=== PATIENT | male | born 1970 | race Hispanic/Latino ===

== ENCOUNTER 2018-03-02 10:33 | Emergency (ER) | payer SELFPAY ==
[2018-03-02 10:33] VITALS: BP 121/84; PULSE 75; RESP 19; TEMP 36.1; O2SAT 99; BMI 29.7
--- NOTE | 2018-03-02 10:52 | ED.VISSUMM ---
- ER Visit Summary Date of Service: 03/02/18 Chief Complaint: Low back pain History of Present Illness: The patient is a 47 M no significant past medical history. No prior surgeries. Patient states yesterday he was seated want to bend over to pick something up and had onset of low back pain. Denies any numbness or weakness. No fever. No trauma or fall. He denies any prior back surgery. He has had similar prior back pain 3-4 years ago. He denies any radiation to his legs. He denies any bowel or bladder incontinence. He is on no blood thinners. Pain is worse with movement. He denies any abdominal pain. He denies any difficulty urinating or moving his bowels. Physical Examination: Middle-aged male. Vital signs are stable afebrile. H EENT exam unremarkable. Neck nontender. No lymphadenopathy. Lungs clear to auscultation bilaterally. Heart regular rhythm no murmur. Abdomen soft nontender. Normal bowel sounds no peritoneal signs. No pulsatile mass. Patient is moving all 4 extremities. Neurovascular intact. Full range of motion of both upper and lower extremities. 5 out of 5 commissioning specialist strength bilaterally both upper extremities. Dorsi and plantar flexion intact in lower extremities. Normal range of motion. No cauda equina. No saddle anesthesia. Normal medial thigh sensation. Negative straight leg raise. Back exam tender in the lumbar spine area. No redness. No warmth. No signs of trauma. No bruising. SI joints are nontender. Cervical and thoracic spine nontender. Neurologically is awake and alert. Moving all 4 extremities. All are neurovascularly intact. Again no cauda equina. No focal motor deficits. No sensation loss. Test Results: None Emergency Department Course and Treatment: Patient treated with IM Toradol. History and exam are consistent with a lumbar strain. Treatment Plan: Naprosyn for pain and inflammation. Follow-up with Dr. Chand if not improving. At the current time he does not need any imaging. Disposition: Discharge Impression: Acute lumbar strain This note was generated with [employer] dictation software. It may contain incorrect words, spelling, and punctuation that were not noted in review of the chart prior to signing ED Disposition - Plan for ED Patient: Chief Complaint: Back Referrals: NOT,DEFINED [Primary Care Provider] -
--- NOTE | 2018-03-02 10:55 | ED.DCSUM_ITS ---
- ER Visit Summary Date of Service: 03/02/18 Chief Complaint: Low back pain History of Present Illness: The patient is a 47 M no significant past medical history. No prior surgeries. Patient states yesterday he was seated want to bend over to pick something up and had onset of low back pain. Denies any n umbness or weakness. No fever. No trauma or fall. He denies any prior back surgery. He has had similar prior back pain 3-4 years ago. He denies any radiation to his legs. He denies any bowel or bladder incontinence. He is on no blood thinners. Pain is worse with movement. He denies any abdominal pain. He denies any difficulty urinating or moving his bowels. Physical Examination: Middle-aged male. Vital signs are stable afebrile. H EENT exam unremarkable. Neck nontender. No lymphadenopathy. Lungs clear to auscultation bilaterally. Heart regular rhythm no murmur. Abdomen soft nontender. Normal bowel sounds no peritoneal signs. No pulsatile mass. Patient is moving all 4 extremities. Neurovascular intact. Full range of motion of both upper and lower extremities. 5 out of 5 dry pan feeder strength bilaterally both upper extremities. Dorsi and plantar flexion intact in lower extremities. Normal range of motion. No cauda equina. No saddle anesthesia. Normal medial thigh sensation. Negative straight leg raise. Back exam tender in the lumbar spine area. No redness. No warmth. No signs of trauma. No bruising. SI joints are nontender. Cervical and thoracic spine nontender. Neurologically is awake and alert. Moving all 4 extremities. All are neurovascularly intact. Again no cauda equina. No focal motor deficits. No sensation loss. Test Results: None Emergency Department Course and Treatment: Patient treated with IM Toradol. History and exam are consistent with a lumbar strain. Treatment Plan: Naprosyn for pain and inflammation. Follow-up with Dr. Chand if not improving. At the current time he does not need any imaging. Disposition: Discharge Impression: Acute lumbar strain This note was generated with [employer] dictation software. It may contain incorrect words, spelling, and punctuation that were not noted in review of the chart prior to signing ED Disposition - Plan for ED Patient: Chief Complaint: Back Referrals: NOT,DEFINED [Primary Care Provider] -
--- NOTE | 2018-03-02 10:55 | ED.DEP ---
ED Disposition - Plan for ED Patient: Disposition: Home or Assisted Living Chief Complaint: Back Instructions: ED Sprain Strain Lumbar Prescriptions: Naproxen [Naprosyn] 500 mg PO BID PRN PRN #20 tab PRN Reason: back pain Referrals: Don Asif MD [STAFF PHYSICIAN] - 1 Week if not improving Additional Instructions: Naprosyn for pain. Call follow-up with your primary care physician if not improving within the next week. Return to the ER if weakness in your lower extremities or bowel or bladder incontinence.
[2018-03-02] MEDS: Ketorolac 60 MG/2 ML Vial IM (11:06)
[2018-03-02 11:28] VITALS: BP 97/67; PULSE 80; RESP 15
== END 2018-03-02 11:29 | disposition home or self-care (01) ==
LOC: ED 11:15
PROVIDERS: Emergency Provider Emergency Medicine
DX: S39.012A Strain of muscle, fascia and tendon of lower back, initial encounter (principal); X50.1XXA Overexertion from prolonged static or awkward postures, initial encounter; Y93.9 Activity, unspecified; Y92.9 Unspecified place or not applicable; Y99.9 Unspecified external cause status
CPT/HCPCS: 96372; 99282